=== PATIENT | male | born 1985 | race Caucasian/White ===

== ENCOUNTER → 2017-03-18 | Outpatient (CLI) | payer OTHER ==
--- NOTE | 2017-03-18 09:35 | MRI ---
HISTORY: Neck pain, neck injury Study: MRI cervical spine without contrast Comparison: None Technique: Multi planar multi sequence noncontrast imaging Findings: The paraspinous soft tissues are normal. The vertebral body alignment and bone signal is normal. The cervical spinal cord is normal in size and configuration and demonstrates no foci of abnormal signal. The disc levels are evaluated as follows: C2-3 level: No evidence for compressive disc disease. The neural foramina are patent. C3-4 level: Minimal disc bulging causes minimal thecal sac effacement but no significant neural compr ession or canal stenosis. The neural foramina are patent. C4-5 level: No evidence for compressive disc disease. The neural foramina are patent. C5-6 level: No evidence for compressive disc disease. The neural foramina are patent. C6-7 level: No evidence for compressive disc disease. The neural foramina are patent. C7-T1 level: No evidence for compressive disc disease. The neural foramina are patent. IMPRESSION: No evidence for significantly compressive spondylitic change or disc disease No definite evidence for visible bony abnormality. CT cervical spine may be of further diagnostic ottoniel ue if fracture is a clinical consideration. Reported By:
== END ==
LOC: RAD 08:36
PROVIDERS: ATTEND Specialist
DX: S14.109A Unspecified injury at unspecified level of cervical spinal cord, initial encounter (principal); X58.XXXA Exposure to other specified factors, initial encounter
CPT/HCPCS: 72141